=== PATIENT | male | born 1970 | race Caucasian/White ===

== ENCOUNTER → 2017-02-03 | Outpatient (CLI) | payer OTHER ==
--- NOTE | ~2017-02-03 | CR7 ---
[facility] A Service of [facility] & [facility] RADIOLOGY TEXT RESULTS PATIENT: LEAH CLEARY LOCATION: [facility] : 68 UNIT #: [id number] AGE: [address]: Francisco Odom MD SEX: M ORDER DR: [id number] [facility] [address] [place], [place] [address] [id number] O MR#: [id number] Acc #: [id number] NAME: LEAH CLEARY : 1970 SEX: M STUDY DATE/TIME: 02/03/2017 14:39 UNIT: [facility] ROOM: STUDY DESCRIPTION: CR Abdomen Single AP View Attending Physician: Francisco Odom M.D. Referring Physician: Francisco Odom M.D. Ordering Physician: Francisco Odom M.D. Primary Care Physician: Lila Harrell M.D. MEDICAL IMAGING REPORT This report is preliminary unless electronic signature is present EXAM AP abdomen INDICATION Follow up kidney stones COMPARISON 02/04/2016 FINDINGS Multiple stones in the region of the left kidney and probably some in the right kidney as well. There are at least three stones in the left kidney and the largest measures about 7.0 mm. The suspected stone that is visible in the right kidney is very tiny. Phleboliths in the pelvis. IMPRESSION Multiple stones in the left kidney, the largest measuring 7.0 mm. At least one tiny stone is visualized in the right kidney. Dictated by... Dejuan Elder M.D. THIS IS AN ELECTRONICALLY VERIFIED REPORT Dejuan Elder M.D. at 02/04/2017 12:25 PM Tereso TD: 02/04/2017 08:43 JOB #: [id number] MEDICAL IMAGING REPORT Page 1 of 1 COPY
== END | disposition home or self-care (01) ==
LOC: CRAD 14:13
DX: N20.0 Calculus of kidney (principal)
CPT/HCPCS: 74000